=== PATIENT | male | born 1950 | race Caucasian/White ===

== ENCOUNTER → 2017-11-29 | Outpatient (CLI) | payer MEDICARE, BC ==
[2017-11-29 14:01] LABS: ABSOLUTE BASOPHILS # (AUTO) 0.1 10^3/uL (0.0-0.2); ABSOLUTE EOSINOPHILS # (AUTO) 0.4 10^3/uL (0.0-0.6); ABSOLUTE LYMPHOCYTES (AUTO) 3.8 10^3/uL (0.5-4.7); ABSOLUTE MONOCYTES (AUTO) 0.9 10^3/uL (0.1-1.4); ABSOLUTE NEUT (AUTO) 6.3 10^3/uL (1.7-8.2); BASOPHILS % (AUTO) 1.2 % (0-2); EOSINOPHILS % (AUTO) 3.3 % (0-6); HEMATOCRIT 44.4 % (37.9-51.0); HEMOGLOBIN 14.5 g/dL (13.5-17.0); LYMPHOCYTES % (AUTO) 33.2 % (13-45); MEAN CORPUSCULAR HEMOGLOBIN 29.9 pg (27.0-33.4); MEAN CORPUSCULAR HGB CONC 32.6 g/dL (32.0-36.0); MEAN CORPUSCULAR VOLUME 92 fl (80-97); MONOCYTES % (AUTO) 7.4 % (3-13); PLATELET COUNT 381 10^3/uL (150-450); RED BLOOD COUNT 4.85 10^6/uL (4.35-5.55); RED CELL DISTRIBUTION WIDTH 15.2 % (11.5-14.0); SEGMENTED NEUTROPHILS % (AUTO) 54.9 % (42-78); TOTAL CELLS COUNTED % (AUTO) 100 %; WHITE BLOOD COUNT 11.6 10^3/uL (4.0-10.5)
[2017-11-29 14:25] LABS: ALANINE AMINOTRANSFERASE 41 U/L (21-72); ALBUMIN 4.3 g/dL (3.5-5.0); ALKALINE PHOSPHATASE 56 U/L (38-126); ANION GAP 13 (5-19); ASPARTATE AMINO TRANSFERASE 30 U/L (17-59); BILIRUBIN,DIRECT 0.3 mg/dL (0.0-0.4); BILIRUBIN,TOTAL 0.3 mg/dL (0.2-1.3); BLOOD UREA NITROGEN 18 mg/dL (7-20); C-REACTIVE PROTEIN 7.5 mg/L (<10.0); CALCIUM 9.5 mg/dL (8.4-10.2); CARBON DIOXIDE 29 mmol/L (22-30); CHLORIDE 101 mmol/L (98-107); GLUCOSE 132 mg/dL (75-110); POTASSIUM 5.1 mmol/L (3.6-5.0); SODIUM 143.2 mmol/L (137-145); TOTAL PROTEIN 7.7 g/dL (6.3-8.2)
[2017-11-29 14:41] LABS: ERYTHROCYTE SEDIMENTATION RATE 16 mm/hr (0-20)
[2017-11-30 07:06] LABS: IMMUNOGLOBULIN M 62 mg/dL (20-172)
[2017-11-30 15:30] LABS: TETANUS ANTITOXOID IGG AB 2.54 IU/mL (<0.10)
[2017-12-01 07:35] LABS: BETA-2 GLYCOPROTEIN I IGA AB <9 (0-25); BETA-2 GLYCOPROTEIN I IGG AB <9 (0-20); BETA-2 GLYCOPROTEIN I IGM AB <9 (0-32); BORDETELLA PERTUSSIS IGM AB <1.0 index (0.0-0.9)
[2017-12-01 09:15] LABS: ANTICARDIOLIPIN IGA AB <9 APL U/mL (0-11); ANTICARDIOLIPIN IGG AB <9 GPL U/mL (0-14); ANTICARDIOLIPIN IGM AB <9 MPL U/mL (0-12)
[2017-12-02 11:40] LABS: STREP PNEUMO TYPE 14 0.4 ug/mL (>1.3); STREP PNEUMO TYPE 19 0.6 ug/mL (>1.3); STREP PNEUMO TYPE 23 0.3 ug/mL (>1.3); STREP PNEUMO TYPE 26 0.8 ug/mL (>1.3); STREP PNEUMO TYPE 4 <0.1 ug/mL (>1.3)
[2017-12-02 13:48] LABS: STREP PNEUMO TYPE 68 0.4 ug/mL (>1.3)
== END ==
LOC: OD 12:40
PROVIDERS: ATTEND Internal Medicine Infectious Disease
DX: D03.8 Melanoma in situ of other sites (principal); R63.4 Abnormal weight loss; Z79.899 Other long term (current) drug therapy; E29.1 Testicular hypofunction; K86.1 Other chronic pancreatitis
CPT/HCPCS: 36415; 80053; 82784; 85025; 85652; 86140; 86146; 86147; 86317; 86615; 86701; 86774

== ENCOUNTER → 2018-08-15 | Outpatient (CLI) | payer MEDICARE, BC ==
[2018-08-15 15:24] LABS: HEMATOCRIT 41.5 % (37.9-51.0); HEMOGLOBIN 13.7 g/dL (13.5-17.0); MEAN CORPUSCULAR HEMOGLOBIN 29.9 pg (27.0-33.4); MEAN CORPUSCULAR VOLUME 91 fl (80-97); PLATELET COUNT 481 10^3/uL (150-450); RED BLOOD COUNT 4.58 10^6/uL (4.35-5.55); WHITE BLOOD COUNT 20.6 10^3/uL (4.0-10.5)
[2018-08-15 15:35] LABS: APPEARANCE,URINE CLEAR; BILIRUBIN,URINE NEGATIVE (NEGATIVE); COLOR,URINE YELLOW; GLUCOSE, URINE NEGATIVE (NEGATIVE); KETONES,URINE NEGATIVE (NEGATIVE); LEUKOCYTE ESTERASE,URINE NEGATIVE (NEGATIVE); NITRITE,URINE NEGATIVE (NEGATIVE); PROTEIN,URINE NEGATIVE (NEGATIVE); URINE SPECIFIC GRAVITY 1.009; UROBILINOGEN,URINE NEGATIVE mg/dL (<2.0)
[2018-08-15 15:47] LABS: ALANINE AMINOTRANSFERASE 38 U/L (21-72); ALBUMIN 4.4 g/dL (3.5-5.0); ALKALINE PHOSPHATASE 83 U/L (38-126); ANION GAP 9 (5-19); ASPARTATE AMINO TRANSFERASE 26 U/L (17-59); BILIRUBIN,DIRECT 0.2 mg/dL (0.0-0.4); BILIRUBIN,TOTAL 0.3 mg/dL (0.2-1.3); BLOOD UREA NITROGEN 20 mg/dL (7-20); CALCIUM 9.7 mg/dL (8.4-10.2); CARBON DIOXIDE 33 mmol/L (22-30); CHLORIDE 100 mmol/L (98-107); GLUCOSE 79 mg/dL (75-110); LIPASE 18.9 U/L (23-300); POTASSIUM 4.7 mmol/L (3.6-5.0); SODIUM 141.8 mmol/L (137-145); TOTAL PROTEIN 7.2 g/dL (6.3-8.2)
[2018-08-15 16:12] LABS: ABSOLUTE LYMPHOCYTES# (MANUAL) 6.2 10^3/uL (0.5-4.7); ABSOLUTE MONOCYTES # (MANUAL) 0.6 10^3/uL (0.1-1.4); ABSOLUTE NEUTROPHILS# (MANUAL) 13.8 10^3/uL (1.7-8.2); BAND NEUTROPHILS % (MANUAL) 1 % (3-5); BASOPHILS % (MANUAL) 0 % (0-2); EOSINOPHILS % (MANUAL) 0 % (0-6); LYMPHOCYTES % (MANUAL) 30 % (13-45); MONOCYTES % (MANUAL) 3 % (3-13); SEGMENTED NEUTROPHILS % (MAN) 66 % (42-78); TOTAL CELLS COUNTED 100
[2018-08-15 16:14] LABS: ANISOCYTOSIS SLIGHT; PLATELET COMMENT ADEQUATE; PLATELET LARGE PRESENT; POIKILOCYTOSIS SLIGHT; TARGET CELLS SLIGHT; TOXIC VACUOLATION PRESENT
== END ==
LOC: OD 14:03
PROVIDERS: ATTEND Internal Medicine Infectious Disease
DX: I10 Essential (primary) hypertension (principal); Z79.899 Other long term (current) drug therapy
CPT/HCPCS: 36415; 80053; 81001; 83690; 85025

== ENCOUNTER 2019-03-02 08:04 | Day surgery (SDC) | payer MEDICARE, BC ==
[~2019-03-02 08:04] MED LIST: PROPOFOL INJ 200 MG/20 ML VIAL IV ONE
[2019-03-02 10:53] VITALS: BP 137/66
--- NOTE | 2019-03-02 11:32 | Operative Report ---
Operative Report DATE OF SURGERY: 03/02/19 PREOPERATIVE DIAGNOSIS: Colorectal cancer screening POSTOPERATIVE DIAGNOSIS: Colon polyp removed at approximately 25 cm in the sigmoid. Internal hemorrhoids. Diverticulosis without any evidence of diverticulitis OPERATION: Colonoscopy to the cecum with biopsy. Risk benefits alternatives of the procedure including the risk of bleeding, perforation requiring surgery have been explained to the patient in detail and informed consent has been obtained. Timeout was called. Propofol medication is administered. The scope was inserted to the patient's rectum prep was good. Scope was advanced all the way to the cecum. Luminal and concentric views of the colon obtained as the scope was being withdrawn. Retroflexion maneuvers performed SURGEON: SHANE CHATMAN ANESTHESIA: LMAC TISSUE REMOVED OR ALTERED: As noted above COMPLICATIONS: None. ESTIMATED BLOOD LOSS: None. INTRAOPERATIVE FINDINGS: As noted above. PROCEDURE: Patient tolerated the procedure well. No immediate postprocedure complications are noted. Patient is discharged in good condition. Discharge date 03/02/2019. Discharge diet: Regular. Discharge activity: Regular. 2 to 3-week follow-up to discuss findings. Wait on the pathology. Resume anticoagulation tonight. Surveillance colonoscopy 3 to 5 years depending on the pathology of the polyp
== END 2019-03-02 10:20 | disposition home or self-care (01) ==
LOC: END 08:04
PROVIDERS: ATTEND Internal Medicine Gastroenterology
DX: R19.5 Other fecal abnormalities (principal); D12.5 Benign neoplasm of sigmoid colon; K64.8 Other hemorrhoids; K57.30 Diverticulosis of large intestine without perforation or abscess without bleeding; J44.9 Chronic obstructive pulmonary disease, unspecified; I49.9 Cardiac arrhythmia, unspecified; Z86.73 Personal history of transient ischemic attack (TIA), and cerebral infarction without residual deficits; Z87.891 Personal history of nicotine dependence; Z79.899 Other long term (current) drug therapy; Z86.010 Personal history of colon polyps
CPT/HCPCS: 45380; 88305 ×2; J2704; 811